=== PATIENT | male | born 1950 | race Caucasian/White ===

== ENCOUNTER 2018-04-08 16:47 | Observation (INO) | payer BC, MEDICARE ==
[2018-04-08] MEDS ORDERED: Aspirin 81 mg CHEW TAB* 81 MG TAB.CHEW PO ONE (17:51)
[2018-04-08 18:11] LABS: Hematocrit 48 % (42-52); Hemoglobin 16.3 g/dl (14.0-18.0); Mean Corpuscular HGB Conc 34 g/dl (31-36); Mean Corpuscular Hemoglobin 31 pg (27-31); Mean Corpuscular Volume 91 fL (80-94); Mean Platelet Volume 8.7 um3 (7.4-10.4); Platelet Count 173 10^3/ul (150-450); Red Blood Count 5.31 10^6/ul (4.0-5.4); Red Cell Distribution Width 14 % (10.5-15); White Blood Count 7.3 10^3/ul (3.5-10.8)
[2018-04-08 18:27] LABS: EGFR Non-African American 60.6 (>60)
--- NOTE | 2018-04-08 19:18 | RAD ---
INDICATION: Chest pain COMPARISON: None. TECHNIQUE: Single AP portable view of the chest was obtained. FINDINGS: Image quality is compromised due to the relative inferiority of a portable chest x-ray. The heart and mediastinum exhibit normal size and contour. The lungs are grossly clear. There is no evidence of a large pleural effusion. Visualized bones are normal for the patient's age. IMPRESSION: No radiographic evidence for acute cardiopulmonary abnormality on this portable chest x-ray.
[2018-04-08] MEDS ORDERED: Acetaminophen TAB* 325 MG PO PRN (20:53)
[2018-04-08] MEDS ORDERED: Ondansetron 40 MG VIAL* 2 MG/ML 20 ML VIAL IV PRN (20:53)
[2018-04-08] MEDS ORDERED: Enoxaparin(*) 40 MG/0.4 ML SYR SUBCUT SCH (21:00)
[2018-04-08] MEDS ORDERED: NS 0.9% 1000 ML* 1,000 ML IV SCH (21:00)
[2018-04-09] MEDS ORDERED: Omeprazole CAP* 20 MG PO SCH (06:00)
--- NOTE | 2018-04-09 07:24 | HP ---
ADMISSION HISTORY AND PHYSICAL: DATE OF ADMISSION: 04/08/18 PRIMARY CARE PROVIDER: Dr. Anton in [place]. HEALTHCARE PROXY: His . CODE STATUS: Full. SOURCE OF INFORMATION: His history obtained from interview with the patient and his . RELIABILITY: Good. CHIEF COMPLAINT: Chest tightness. HISTORY OF PRESENT ILLNESS: This is a 67-year-old man with past medical history of high blood pressure, been in his usual state of health, was in the car driving from [place] to [place]. He started to develop faint chest pressure in his left upper sternal border around 3:30. He walked into his daughter's store where he noted he was not feeling well, felt diaphoretic, but contributed to the heat and humidity. He felt as if his heart might be racing fast and tried to find his pulse, but had difficulty locating, which he suspects was secondary to the fast heart rate. He went to urgent care where an EKG was notable for SVT, ventricular rate per photocopy about greater than 150. He was arranged for transfer via EMS to [facility] and he cardioverted spontaneously without medications while IVs were being placed by EMS. He believes his chest discomfort lasted for approximately 2 hours until he cardioverted. Of note, he was slightly more stressed today, arguing with his . Additionally, over the last 6 months, he has increased his caffeine intake. He drinks at least 2 or 3 cups per day with an occasional tea or coffee. There has been no episodes of apnea at night and he has rare snoring as evidenced by his . He drinks no alcohol. 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 He did note approximately 2 weeks ago he had what he believes to be several minutes of chest discomfort. He cannot identify of what he was doing or when it was exactly, but he has a faint memory of it happening. When seen by this author, he is comfortable sitting in bed and has no complaints. PAST MEDICAL HISTORY: Includes: 1. Hypertension. 2. Nephrolithiasis. 3. BPH. HOME MEDICATIONS: 1. Ramipril 2.5 mg every other day. 2. Finasteride 5 mg daily. 3. Dexilant 30 mg daily as needed. ALLERGIES: No known drug allergies. FAMILY HISTORY: His mother had high blood pressure. No history of CAD, CVA or type 2 diabetes. SOCIAL HISTORY: No tobacco. One alcoholic drink per week at most. 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 REVIEW OF SYSTEMS: No fever, chills, night sweats. Only discomfort is indicated above. No shortness of breath, lightheadedness. Diaphoresis as noted above. All other systems reviewed negative. PHYSICAL EXAMINATION GENERAL: Sitting in bed, interactive, pleasant, no apparent distress. HEENT: Oropharynx is clear. Moist mucous membranes. Sclerae anicteric. NECK: He has non-elevated JVD. There is no cervical or supraclavicular lymphadenopathy. LUNGS: His lungs are clear except for faint rales on the right base. HEART: Regular rate and rhythm. No murmurs, rubs or gallops. ABDOMEN: Soft, nontender, nondistended. EXTREMITIES: Warm, well perfused. No clubbing, cyanosis or edema. He has less than 2 second cap refill. NEUROLOGIC: He is alert and oriented x3. His cranial nerves II through XII are intact. PSYCHIATRY: He has no apparent anxiety, agitation, or depression. DIAGNOSTIC STUDIES/LAB DATA: Labs are reviewed, notable for troponin I 0.01. His creatinine is 1.19. His TSH is 0.75. Data reviewed: EKG: SVT at urgent care, then normal sinus rhythm with normal limit axis. No ST or T wave changes at [facility]. Chest x-ray: No cardiopulmonary disease. ASSESSMENT AND PLAN: This is a 67-year-old man presenting with approximately 2 hours of chest discomfort in the setting of supraventricular tachycardia, spontaneously cardioverted while placement of IV at an urgent care, now comfortable. 1. Supraventricular tachycardia, suspect in the setting of increased caffeine, stress, although cannot rule out ischemia in the setting of underlying chest discomfort for 2 hours. I recommend observation care, to trend serial troponins at least 3 prior to his discharge, as well as continue telemetry monitoring overnight. We will check a fasting lipid panel in the morning as well as continue aspirin 81 mg. I will not add statin or beta charity at this time. He will need a followup with a equipment manager, potential outpatient Holter monitor to evaluate for further care. If troponins do remain negative, I do not think he warrants inpatient cardiac stress testing at this time. 2. Chronic kidney disease. No previous value on record. This could represent acute kidney injury. I am giving him normal saline of 125 mL per hour overnight with a recheck in the morning. 3. Hypertension. Continue ramipril every other night. 4. Benign prostatic hypertrophy. Continue finasteride. 4. DVT prophylaxis: Enoxaparin. [id number]/[facility] #: [id number]
[2018-04-09 07:28] LABS: EGFR Non-African American 72.4 (>60)
[2018-04-09 07:38] VITALS: BP 135/73
[2018-04-09] MEDS ORDERED: Finasteride TAB* 5 MG PO SCH (09:00)
[2018-04-09] MEDS ORDERED: Aspirin 81 mg CHEW TAB* 81 MG TAB.CHEW PO SCH (09:00)
[2018-04-09] MEDS ORDERED: Ramipril CAP* 2.5 MG PO SCH (10:00)
--- NOTE | 2018-04-09 11:57 | PN ---
Progress Note - Progress Note Date of Service: 04/09/18 Note: Discharge Progress Note Primary Diagnosis: paroxysmal supraventricular tachycardia Secondary Diagnoses: dehydration hypertension BPH hyperlipidemia Consultations: none Procedures: none Pertinent lab/radiology testing: Laboratory Tests 04/08/18 04/08/18 04/08/18 18:00 18:00 21:02 Hgb 16.3 Hct 48 Creatinine 1.19 H Troponin I 0.01 0.06 H* Cholesterol LDL Cholesterol HDL Cholesterol TSH 0.75 04/09/18 04/09/18 01:47 06:16 Hgb Hct Creatinine 1.02 Troponin I 0.06 H* 0.05 H* Cholesterol 202 LDL Cholesterol 132 HDL Cholesterol 55.6 TSH Chest X-ray: negative Initial EKG: narrow complex tachy at 190 bpm Repeat EKG: one PVC, NSR Tests pending upon discharge: none Discharge Physical Exam: Selected Entries 04/08/18 04/09/18 04/09/18 22:28 03:39 07:15 Pulse Rate 56 60 59 Blood Pressure 129/76 132/74 135/73 (mmHg) O2 Sat by Pulse 100 Oximetry Alert, well-appearing Lungs: clear Heart; RRR
[2018-04-10] MEDS ORDERED: Ramipril CAP* 2.5 MG PO SCH (09:00)
--- NOTE | 2018-04-10 11:46 | DS ---
CC: Rashawn Anton MD, [place]. Phone#: [phone]. DISCHARGE SUMMARY: DATE OF ADMISSION: 04/08/18. DATE OF DISCHARGE: 04/09/18. PRIMARY CARE PROVIDER: Rashawn Anton MD, [place]. Phone#: [phone]. PRIMARY DIAGNOSIS: Paroxysmal supraventricular tachycardia. SECONDARY DIAGNOSES: 1. Dehydration. 2. Hypertension. 3. Nephrolithiasis. 4. Benign prostatic hyperplasia. 5. Gastroesophageal reflux disease. MEDICATIONS ON DISCHARGE: 1. Aspirin 81 mg p.o. daily. 2. Dexilant 30 mg p.o. daily p.r.n. 3. Finasteride 5 mg p.o. daily. 4. Ramipril 2.5 mg p.o. daily. 5. The patient was initiated on propranolol 20 mg p.o. daily p.r.n. for palpitation. HOSPITAL COURSE: The patient was admitted to observation at this hospital after a visit to urgent ca re in the community where he was reported to have a narrow complex supraventricular tachycardia aroun d a heart rate 190 beats per minute. This arrhythmia resolved prior to [facility] and the EKGs are not available to me at this time from the urgent care. He did have 3 EKGs at this hospital, which showed normal sinus rhythm, normal axis, normal intervals, no ischemia and occas ional PVCs. The patient's initial creatinine was 1.19 and this dropped to 1.02 with hydration. His initial troponin was 0.01 and it miguelito to 0.06 and then fell to 0.05 on discharge. Cholesterol was ch ecked and it was 202 with an HDL of 55.6. His LDL 132. His thyroid is normal. Electrolytes otherwis e normal. He is not anemic. The patient reports that he was visiting family in [place] when this palp itations occurred. He admits to psychological stress with his personal life. He also admitted to ca ffeine intake on the day of admission. No excessive alcohol use. The patient reports one other epis ode of SVT approximately 7 years ago. Patient was discharged on 04/09/18 to follow up with his prima care doctor. He is advised to limit caffeine use and stay hydrated in the summer heat. He could b e referred to Cardiology if this is recurrent. He may be a candidate for echocardiogram to make sure his LV function is normal and if this happens frequently, he could be a candidate for electrophysiol ogy studies. DISPOSITION: To home. DIET: Should be low in salt. ACTIVITIES: As tolerated. He is advised to see his primary care doctor within a week of discharge. [id number]/[id number] #: [id number]
[2018-04-11] MEDS ORDERED: Finasteride TAB* 5 MG PO SCH (09:00)
== END 2018-04-09 12:30 | disposition home or self-care (01) ==
LOC: ED 16:47 → MEDTELE 20:53
PROVIDERS: ADMIT Internal Medicine; ATTEND Internal Medicine
DX: I47.1 Supraventricular tachycardia (principal); R07.9 Chest pain, unspecified; E86.0 Dehydration; I12.9 Hypertensive chronic kidney disease with stage 1 through stage 4 chronic kidney disease, or unspecified chronic kidney disease; N18.9 Chronic kidney disease, unspecified; N40.0 Benign prostatic hyperplasia without lower urinary tract symptoms; K21.9 Gastro-esophageal reflux disease without esophagitis; Z87.442 Personal history of urinary calculi; Z79.899 Other long term (current) drug therapy
CPT/HCPCS: 36415; 71045; 80048; 80053; 80061; 83735; 84439; 84443; 84484; 85027; 93005; 96360; 96361; 96372; 99284; A9270-GY; G0378; J1650